=== PATIENT | male | born 1945 | race Caucasian/White ===

== ENCOUNTER → 2017-12-26 14:32 | Outpatient (CLI) | payer MEDICARE, OTHER, SELFPAY ==
--- NOTE | 2017-12-26 14:45 | RAD_ITS ---
STUDY: X-RAY - LUMBAR SPINE REASON FOR EXAM: Male, 72 years old. Low back pain TECHNIQUE: 5 view(s) of the lumbar spine were obtained. COMPARISON: None FINDINGS: Normal lumbar lordosis. There is no substantial scoliosis. There is a normal alignment of the vertebrae. There is multilevel endplate spondylosis of the lumbar vertebrae. There is multi-level degenerative disc disease with multi-level disc space narrowing. The soft tissue structures are unremarkable. RAD/L/S Spine Min 4 Views IMPRESSION: Degenerative changes of the spine, as detailed above. Electronically Signed: Tomas Flower DO at 15:36 EDT Tel , Service support ,
== END ==
PROVIDERS: Visit Provider Anesthesiology Pain Medicine
DX: M54.5 Low back pain (principal); Z85.51 Personal history of malignant neoplasm of bladder
CPT/HCPCS: 72110

== ENCOUNTER → 2018-01-16 15:44 | Outpatient (CLI) | payer MEDICARE, OTHER, SELFPAY | PROVIDERS: Visit Provider Radiology Radiation Oncology | DX: C67.9 Malignant neoplasm of bladder, unspecified (principal) | CPT/HCPCS: 51600; 72193; Q9967 ==

== ENCOUNTER 2018-02-02 09:44 | Inpatient (IN) | payer MEDICARE, OTHER, SELFPAY ==
[2018-02-02 09:45] VITALS: BP 119/66; PULSE 96; RESP 16; TEMP 36.7; O2SAT 98; BMI 18.4
--- NOTE | 2018-02-02 09:59 | ED.VIS.GEN ---
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 He gets intermittent severe lower abdominal pain when he gets a spasm-like discomfort. Otherwise he feels okay, and is unable to urinate anything except for very small amounts at a time. Feels like something is blocking the plumbing. No fevers or back pain or nausea/vomiting. Takes a baby ASA daily, but no other antiplatelets or anticoagulants. - Past Medical History (1) Bladder cancer metastasized to bone Status: Chronic (2) Anxiety Status: Chronic Past Medical History - Allergies and Home Meds Allergies/Adverse Reactions: Allergies sulfamethoxazole [From Bactrim] Adverse Reaction (Verified 02/02/18 11:45) Vomiting trimethoprim [From Bactrim] Adverse Reaction (Verified 02/02/18 11:45) Vomiting Primary Care Physician: Adia Martinez MD [Primary Care Provider] - Review of Systems All systems negative except as indicated General: Reports: Malaise Gastrointestinal: Reports: Abdominal pain Genitourinary: Reports: Hematuria, - - urinary retention Musculoskeletal: Denies: Back pain Physical Exam Vital Signs/Narrative: Vital Signs Temp Pulse Resp BP Pulse Ox 02/02/18 09:45 98.1 F 96 16 119/66 98 Inital Vital Signs reviewed: Yes General: Well nourished, Well developed, - - NAD Head: Normocephalic, Atraumatic Eyes: Perrl, EOMI ENT: Moist mucous membranes, No rhinorrhea Neck: Supple, Nontender Cardiovascular: Regular rate, Regular rhythm, No murmurs Respiratory: No distress, CTA bilaterally, Chest nontender Abdomen: Soft, Nondistended, Normal bowel sounds, Tender - suprapubic. Negative for: Guarding, Rebound tenderness Back: Nontender, Normal Inspection. Negative for: CVA tenderness Extremities: Nontender, No edema Skin: Normal color, No rash Neurological: Alert, Oriented x3, Cranial nerves II-XII grossly intact, Normal Strength, Normal Sensation Psychological: Normal affect Diagnostic/Tx/Re-eval Laboratory Tests 02/02/18 02/02/18 10:25 10:25 WBC 6.8 RBC 3.46 L Hgb 11.5 L Hct 33.9 L MCV 98.0 H MCH 33.2 H MCHC 33.9 RDW 13.9 RDW Differential 49.0 H Plt Count 188 MPV 8.4 Immature Gran % (Auto) 0.100 Neut % (Auto) 81.7 H Lymph % (Auto) 5.5 L Barnes % (Auto) 11.5 H Eos % (Auto) 1.2 Baso % (Auto) 0.0 Absolute Neuts (auto) 5.5 Absolute Lymphs (auto) 0.37 L Total Counted Not Reportable Differential Comment SCANNED Sodium 136 Potassium 4.7 Chloride 102 Carbon Dioxide 25.0 Anion Gap 9 BUN 19 H Creatinine 0.96 Estim Creat Clear Calc 53.43 Est GFR (MDRD) Af Amer 99 Est GFR (MDRD) Non-Af 82 BUN/Creatinine Ratio 19.7 Glucose 122 H Calcium 8.7 - Medical Decision Making Patient had 700 cc of bloody urine with clots out immediately after triple lumen 24F Funk placement, feels improved. He was irrigated with 2 L of saline, and afterwards he has gross hematuria that is persistent. His blood counts look okay, he is admitted after discussing with neurology and his oncologist. ED Disposition - Plan for ED Patient: [facility] Chief Complaint: Complaint Diagnosis: Hematuria, Acute urinary retention, Bladder cancer metastasized to bone Referrals: Adia Martinez MD [Primary Care Provider] -
[2018-02-02 10:38] LABS: Absolute Lymphocyte Count 0.37 X10^3/ul (0.83-4.51); Absolute Neutrophil Count 5.5 X10^3/uL (2.0-7.7); Eosinophil# 0.08 X10^3/uL; Eosinophils% 1.2 % (0-5); Hematocrit 33.9 % (40-54); Hemoglobin 11.5 g/dl (13.0-16.5); Lymphocyte # 0.37 X10^3/ul (4.0); Lymphocyte % 5.5 % (19-41); Mean Corp Hgb Conc 33.9 g/gl (32-36); Mean Corpuscular Hgb 33.2 pg (27.0-32.0); Mean Platelet Vol. 8.4 fl (6.2-12.0); Monocyte# 0.78 X10^3/uL; Monocyte% 11.5 % (0-10); Neutrophil # 5.52 X10^3/uL (2.7-7.7); Neutrophil % 81.7 % (47-70); Platelet Count 188 K/mm3 (150-450); RBC Distribution Width CV 13.9 % (11.6-14.6); Red Blood Count 3.46 M/mm3 (4.6-6.2); White Blood Count 6.8 K/mm3 (4.4-11.0)
[2018-02-02 10:40] LABS: Differential Indicated SCAN CRITERIA MET; POSITIVE COUNT NO; POSITIVE DIFFERENTIAL YES; POSITIVE MORPHOLOGY NO
[2018-02-02 10:54] LABS: Anion Gap 9 (5-15); BUN 19 mg/dL (7-18); BUN/Creat Ratio 19.7 RATIO (10-20); Calcium,Total 8.7 mg/dL (8.5-10.1); Chloride 102 mmol/L (98-107); Creatinine, Serum 0.96 mg/dL (0.70-1.30); EST Glomerular Filtration Rate 82 mL/min (>60); Est Glom Filt Rate - Afr Amer 99 mL/min (>60); Estimated Creatinine Clearance 53.43 ml/min; Glucose 122 mg/dL (74-106); Potassium 4.7 mmol/L (3.5-5.1); Sodium Level 136 mmol/L (136-145)
[2018-02-02] MEDS: Lidocaine Jelly 2% 20 ML Syringe (URO-JET) 20 APPLIC TOPICAL (11:00)
[2018-02-02 11:08] LABS: Differential Comment SCANNED
[2018-02-02 12:42] VITALS: BP 126/58; PULSE 87; RESP 16; O2SAT 97
[2018-02-02 12:44] VITALS: BP 126/58; PULSE 87; RESP 18; O2SAT 97
[2018-02-02 14:39] VITALS: BMI 18.5
[2018-02-02 15:09] VITALS: BMI 18.7
--- NOTE | 2018-02-02 15:11 | PCM.HP.STD ---
Problem List (1) Bladder cancer metastasized to bone Status: Chronic (2) Anxiety Status: Chronic (3) Hematuria Status: Acute (4) Acute urinary retention Status: Acute History of Present Illness Date of Admission: 02/02/18 Chief Complaint: Hematuria and abdominal pain The patient is a 72 year old M with a PMH significant for stage 4 bladder cancer with mets to the pelvis. He was diagnosed 5 years ago and had several surgeries to biopsy and remove the cancer. About 2 years ago he was offered a bladder resection which he refused. He has started chemo/radiation and is on his 8th of 25 treatments, however he did not do his last chemo becuase of not feeling well and having significant nausea. He presented today because of increased abdominal pain and hematuria. He did not have hematuria prior to starting treatments. In the ER he had a three way osorio placed and CBI was initiated with a consultation to Urology. He is a little demoralized with they way things have gone and he is complaining about significant pain and muscle spasms that no one is taking seriously. He states that the norco he was given does not often help his pain and he had been on xanax and flexeril, however he was told, apparently, the [facility] that he could not continue that combination d/t risk of sedation. Past Medical History Past Medical History (Chronic Problems): Chronic Problems Bladder cancer metastasized to bone (Chronic) Anxiety (Chronic) Allergies sulfamethoxazole [From Bactrim] Adverse Reaction (Verified 02/02/18 11:45) Vomiting trimethoprim [From Bactrim] Adverse Reaction (Verified 02/02/18 11:45) Vomiting Home Medications: Ambulatory Orders Medication Instructions Recorded ALPRAZolam [Xanax] 1 mg PO QHS 02/02/18 Gabapentin [Neurontin] 300 mg PO Q6H 02/02/18 Hydrocodone/Acetaminophen 1 tab PO Q6H PRN PRN 02/02/18 [Hydrocodone-Acetamin 5-325 mg] Tamsulosin HCl [Flomax] 0.4 mg PO QHS 02/02/18 Surgical History: - - Bladder biopsy, Tumor resection Lives: Spouse/ Significant Other Smoking Status: Current some day smoker Tobacco Use: Cigarettes Alcohol: None Drugs: None - *Family History Paternal History Items: Cancer, Hypertension Review of Systems Constitutional: Denies: Chills, Fever, Weight Change HEENT: Denies: Head Aches, Sinus Congestion, Sinus Drainage Cardiovascular: Denies: Chest Pain, Palpitations Respiratory: Denies: Cough, Shortness of breath at rest, Sputum production Gastrointestinal: Reports: Abdominal Pain. Denies: Nausea, Vomiting Genitourinary: Reports: Hematuria, Retention. Denies: Dysuria Musculoskeletal: Denies: Joint Pain, Joint Tenderness Skin: Denies: Rash, Wounds Neurological: Denies: Numbness, Tingling, Focal weakness Psychiatric: Denies: Anxiety, Depression, Homicidal Ideations, Suicidal Ideations Hematologic/ Lymphatic: Denies: Easy Bruising, Easy Bleeding VTE Information - Inpt Only VTE Present on Admission: No Patient Problems: Active and Suspected Problems Hematuria (Acute) Acute urinary retention (Acute) - Physical Exam General: Alert, Oriented x3, Cooperative, No apparent distress HEENT: Atraumatic, EOMI, Normocephalic Oral: Moist Mucosa Neck: Supple, No JVD Lungs: Clear to auscultation, Normal air movement, No rhonchi, No wheeze, No rales Cardiovascular: Regular rate, Regular Rhythm, Normal S1, Normal S2, No murmurs Abdomen: Soft, Non Tender, Non-Distended, No Hepato-splenomegaly Extremities: No edema, Capillary Refill Less than 3 Seconds Skin: No rashes, No breakdown Neurological: Neuro grossly intact, Sensory exam intact to light touch and pain Psych/Mental Status: Normal Affect, Appropriate Vital Signs Temp Pulse Resp BP Pulse Ox 98.1 F 87 18 126/58 H 97 02/02/18 09:45 02/02/18 12:44 02/02/18 12:44 02/02/18 12:44 02/02/18 12:44 Weight: 119 lb 11.376 oz Body Mass Index (BMI) 18.7 Assessment/Plan All Active Problems Hematuria (Acute) Acute urinary retention (Acute) 1. Stage 4 bladder cancer/Acute urinary retention/Hematuria/Cancer related bone pain - He has a osorio in place with CBI - C/s to Urology for management - I will increase his pain control with Oxycontin 10 mg BID Po and oxycodone 5 mg q6 PRN - He also has occasional back spasms and anxiety, so will try Valium 2 mg BID prn, will have to monitor closely for sedation while inpatient - c/w his gabapentin as well - Flomax - I spent 25 discussing advance care planning with him and his about the role of hospice in his care and what they can offer if he chooses that route 2. Anxiety - He would benefit from the Valium but he may also benefit from an SSRI/SNRI given his diagnosis DVT: SCD b/o hematuria Diet: Regular Code Visit Inpatient E&M: 22676 Init Hosp L3 Procedures: 70779 Advncd Care Plan 30 Min
[2018-02-02 15:12] VITALS: BP 127/73; PULSE 87; RESP 18; TEMP 37.6; O2SAT 96
[2018-02-02 15:30] VITALS: O2SAT 95
--- NOTE | 2018-02-02 17:49 | PCM.CONS.U ---
Reason for Consult Date of Consultation: 02/02/18 Reason for Consultation: Gross hematuria and history of metastatic bladder cancer History of Present Illness: The patient is a 72 year old male with a history of bladder cancer he is developed metastatic disease with cancer to the bones. He is undergoing radiation therapy to his bladder also as finished chemotherapy. Resents emergency room with gross hematuria bleeding and retention of urine with clots three-way catheter has been placed urines now clearing with nice irrigation. Past Medical History Past Medical History (Chronic Problems): Chronic Problems Bladder cancer metastasized to bone (Chronic) Anxiety (Chronic) Allergies sulfamethoxazole [From Bactrim] Adverse Reaction (Verified 02/02/18 11:45) Vomiting trimethoprim [From Bactrim] Adverse Reaction (Verified 02/02/18 11:45) Vomiting Home Medications: Ambulatory Orders Medication Instructions Recorded ALPRAZolam [Xanax] 1 mg PO QHS 02/02/18 Gabapentin [Neurontin] 300 mg PO Q6H 02/02/18 Hydrocodone/Acetaminophen 1 tab PO Q6H PRN PRN 02/02/18 [Hydrocodone-Acetamin 5-325 mg] Tamsulosin HCl [Flomax] 0.4 mg PO QHS 02/02/18 Surgical History: - - Bladder biopsy, Tumor resection Psychiatric History: No pertinent psych hx Lives: Spouse/ Significant Other Smoking Status: Current some day smoker Tobacco Use: Cigarettes Alcohol: None Drugs: None - *Family History Paternal History Items: Cancer, Hypertension Review of Systems Constitutional: Denies: Chills, Fever, Weight Change HEENT: Denies: Head Aches, Sinus Congestion, Sinus Drainage Cardiovascular: Denies: Chest Pain, Palpitations Respiratory: Denies: Cough, Shortness of breath at rest, Sputum production Gastrointestinal: Denies: Abdominal Pain, Nausea, Vomiting Genitourinary: Reports: Hematuria. Denies: Dysuria Musculoskeletal: Denies: Joint Pain, Joint Tenderness Skin: Denies: Rash, Wounds Neurological: Denies: Numbness, Tingling, Focal weakness Psychiatric: Denies: Anxiety, Depression, Homicidal Ideations, Suicidal Ideations Hematologic/ Lymphatic: Denies: Easy Bruising, Easy Bleeding Physical Exam - Physical Exam Vital Signs Temp 99.7 F H 02/02/18 15:12 Pulse 87 02/02/18 15:12 Resp 18 02/02/18 15:12 BP 127/73 H 02/02/18 15:12 Pulse Ox 95 02/02/18 15:30 Intake & Output 01/31/18 02/01/18 02/02/18 23:59 23:59 23:59 Weight: 54.3 kg General: Alert, Oriented x3 HEENT: Atraumatic Oral: Moist Mucosa Neck: Supple Lungs: Normal air movement Cardiovascular: Regular rate Assessment/Plan All Active Problems Hematuria (Acute) Acute urinary retention (Acute) 72-year-old male with history of metastatic bladder cancer presented with gross hematuria catheter was placed urine is nice and clear continue with CBI I do not anticipate having to do any surgical procedures on the patient currently if the urine clears on its own and he may be oh to go home. May remove the catheter in a day or 2 for a voiding trial. Continue CBI for now slow as needed. Will come back tomorrow afternoon and irrigate the bladder manually to check for more clots. Call me with questions.
--- NOTE | 2018-02-02 18:55 | NURSING ---
This RN in to give 1800 meds-informed patient that he was going to be getting his neurontin and an ensure supplement. Patient's states that he already took his own neurontin from home, he also had 2 motrin and 1 norco at about 5:30pm. This RN informed patient and his that while he is in the hospital the nurses will provide medications for him and that the medications they have in their room need to go home. Patient and family verbalized understanding.
[2018-02-02 21:15] VITALS: BP 131/66; PULSE 88; RESP 16; TEMP 36.9; O2SAT 97
[2018-02-02] MEDS: diazePAM 2 MG Tablet PO (21:30)
[2018-02-02] MEDS: Tamsulosin HCl 0.4 MG Capsule PO (21:31)
[2018-02-02] MEDS: oxyCODONE HCl Cr 10 MG Tablet PO (21:31)
[2018-02-02] MEDS: Docusate Sodium 100 MG Capsule PO (21:32)
[2018-02-02] MEDS: Gabapentin 300 MG Capsule PO (21:33)
[2018-02-03] VITALS (7 sets, daily range): BP systolic 130–142; BP diastolic 50–82; PULSE 90–103; RESP 15–18; TEMP 37.1–37.7; O2SAT 90–97
[2018-02-03] MEDS: oxyCODONE 5 MG Tablet PO ×3 (02:46→14:35)
[2018-02-03] MEDS: ALPRAZolam 0.5 MG Tablet 1 MG PO ×2 (04:30→23:04)
[2018-02-03 06:21] LABS: Anion Gap 9 (5-15); BUN 18 mg/dL (7-18); BUN/Creat Ratio 18.2 RATIO (10-20); Calcium,Total 8.4 mg/dL (8.5-10.1); Chloride 104 mmol/L (98-107); Creatinine, Serum 0.99 mg/dL (0.70-1.30); EST Glomerular Filtration Rate 79 mL/min (>60); Est Glom Filt Rate - Afr Amer 96 mL/min (>60); Estimated Creatinine Clearance 52.56 ml/min; Glucose 95 mg/dL (74-106); Potassium 4.5 mmol/L (3.5-5.1); Sodium Level 139 mmol/L (136-145)
[2018-02-03 06:37] LABS: Absolute Lymphocyte Count 0.57 X10^3/ul (0.83-4.51); Absolute Neutrophil Count 5.7 X10^3/uL (2.0-7.7); Basophil# 0.01 X10^3/uL; Basophil% 0.1 % (0-1); Differential Indicated SCAN CRITERIA MET; Eosinophil# 0.11 X10^3/uL; Eosinophils% 1.5 % (0-5); Hematocrit 32.8 % (40-54); Hemoglobin 11.1 g/dl (13.0-16.5); Lymphocyte # 0.57 X10^3/ul (4.0); Mean Corp Hgb Conc 33.8 g/gl (32-36); Mean Corpuscular Hgb 33.4 pg (27.0-32.0); Mean Corpuscular Volume 98.8 fL (80-94); Mean Platelet Vol. 8.6 fl (6.2-12.0); Monocyte# 0.75 X10^3/uL; Monocyte% 10.6 % (0-10); Neutrophil # 5.65 X10^3/uL (2.7-7.7); Neutrophil % 79.7 % (47-70); POSITIVE COUNT NO; POSITIVE DIFFERENTIAL YES; POSITIVE MORPHOLOGY NO; Platelet Count 216 K/mm3 (150-450); RBC Distribution Width CV 13.5 % (11.6-14.6); RBC Distribution Width SD 46.1 fl (35.1-43.9); Red Blood Count 3.32 M/mm3 (4.6-6.2); White Blood Count 7.1 K/mm3 (4.4-11.0)
[2018-02-03] MEDS: Gabapentin 300 MG Capsule PO ×4 (08:16→23:04)
[2018-02-03] MEDS: Docusate Sodium 100 MG Capsule PO ×2 (08:16→21:23)
--- NOTE | 2018-02-03 09:06 | PCM.PROGNOTE ---
Patient Problems: Active and Suspected Problems Hematuria (Acute) Acute urinary retention (Acute) Subjective: Chief complaint: Follow-up after admission for hematuria. Patient seen and examined. No acute events overnight. He complains of low back pain which is due to metastatic bone lesions. Urine but still having hematuria, pink urine. He denies fever or chills. His vital signs are stable. - Physical Exam General: Alert, Oriented x3, Cooperative, No apparent distress HEENT: Atraumatic, PERRLA, EOMI, Normocephalic Oral: Moist Mucosa, No Gingival or Mucosal Lesions/ Ulcerations Neck: Supple, No JVD, Negative Carotid Bruits, Trachea Midline, Thyroid Normal Size and Texture Lungs: Clear to auscultation, Normal air movement, No rhonchi, No wheeze, No rales Cardiovascular: Regular rate, Regular Rhythm, Normal S1, Normal S2, PMI Normal Abdomen: Bowel Sounds Present, Soft, Non Tender, Non-Distended, No Hepato-splenomegaly Extremities: No clubbing, No cyanosis, No edema Skin: No rashes, No breakdown Lymphatic: No Cervical, Supraclavicular, or Inguinal Adenopathy Neurological: Cranial nerves II-XII grossly intact, Neuro grossly intact Psych/Mental Status: Normal Affect, Appropriate, Alert and oriented to time, place, person, mood and affect Vital Signs Temp Pulse Resp BP Pulse Ox 98.7 F 100 16 139/55 H 95 02/03/18 08:50 02/03/18 08:50 02/03/18 08:50 02/03/18 08:50 02/03/18 08:50 Oxygen Delivery Method Room Air Weight: 119 lb 11.376 oz Body Mass Index (BMI) 18.7 Intake and Output for Last 24 Hours 02/01/18 02/02/18 02/03/18 23:59 23:59 23:59 Intake Total 200 / 200 550 / 550 Output Total 550 / 550 1960 / 1960 Balance -350 / -350 -1410 / -1410 Laboratory Tests Past 24 Hrs 02/03/18 02/03/18 05:35 05:35 WBC 7.1 RBC 3.32 L Hgb 11.1 L Hct 32.8 L MCV 98.8 H MCH 33.4 H MCHC 33.8 RDW 13.5 RDW Differential 46.1 H Plt Count 216 MPV 8.6 Immature Gran % (Auto) 0.100 Neut % (Auto) 79.7 H Lymph % (Auto) 8.0 L Cataño % (Auto) 10.6 H Eos % (Auto) 1.5 Baso % (Auto) 0.1 Absolute Neuts (auto) 5.7 Absolute Lymphs (auto) 0.57 L Total Counted Not Reportable Sodium 139 Potassium 4.5 Chloride 104 Carbon Dioxide 26.0 Anion Gap 9 BUN 18 Creatinine 0.99 Estim Creat Clear Calc 52.56 Est GFR (MDRD) Af Amer 96 Est GFR (MDRD) Non-Af 79 BUN/Creatinine Ratio 18.2 Glucose 95 Calcium 8.4 L Medical Necessity - Tobacco Use Smoking Status: Current some day smoker Tobacco Use: Cigarettes Assessment/Plan All Active Problems Hematuria (Acute) Acute urinary retention (Acute) This is a 72 years old male patient presented to the emergency room because of urinary retention and hematuria and he was admitted for evaluation. #1 urinary retention/hematuria with clots: Status post insertion of Funk catheter, he is on continuous bladder irrigation. Still having hematuria. Blood counts are stable. Hemoglobin and hematocrit remained stable, platelet count is normal. Kidney function is normal. This hematuria is probably due to radiation therapy to the bladder cancer. Urology on the case. Plan is absolutely according to urology and there is no orders from me to be given as the patient has no significant other medical problems apart from bladder cancer and hematuria. #2 metastatic stage IV bladder cancer: With metastases to bone, currently on chemotherapy and radiation. Patient refused bladder resection in the past. Recommend follow-up with oncology as outpatient after discharge. #3 bone pain: It is secondary to metastatic bladder cancer. He is on OxyIR and Valium. #4 anxiety: Continue Xanax. #5 DVT prophylaxis: SCDs. This note was generated with [employer] dictation software. It may contain incorrect words, spelling, and punctuation that were not noted in checking the note before signing. Code Visit Inpatient E&M: 82874 Subs Hosp L2
[2018-02-03] MEDS: oxyCODONE HCl Cr 10 MG Tablet PO ×2 (10:13→21:14)
[2018-02-03] MEDS: Polyethylene Glycol 3350 17 GM PACKET PO (10:14)
--- NOTE | 2018-02-03 12:01 | CASEMGMT ---
CM assessment completed. See Link. DC Plan: home -Intro role of CM to patient and his . Pt and expressed no concerns re: home needs. Pt is independent, no DME. States is able to assist. Marito MONTELONGON RN ACM
--- NOTE | 2018-02-03 14:47 | PCM.PN.BLA ---
Progress Note 72-year-old male with history of metastatic bladder cancer came in with gross hematuria been treated with radiation and chemotherapy. The urine is clearing. I do not anticipate having to taken to the operating room. Tomorrow we can DC the Funk if the urine is clear and discharge patient home after he is able to urinate. Call with questions
[2018-02-03] MEDS: Tamsulosin HCl 0.4 MG Capsule PO (21:23)
[2018-02-04 03:00] VITALS: PULSE 93; RESP 15; O2SAT 91
[2018-02-04] MEDS: Gabapentin 300 MG Capsule PO ×2 (06:00→12:17)
[2018-02-04 07:40] VITALS: O2SAT 89
[2018-02-04 07:52] LABS: Absolute Lymphocyte Count 0.66 X10^3/ul (0.83-4.51); Absolute Neutrophil Count 6.9 X10^3/uL (2.0-7.7); Basophil# 0.01 X10^3/uL; Basophil% 0.1 % (0-1); Eosinophil# 0.17 X10^3/uL; Hematocrit 34.4 % (40-54); Lymphocyte # 0.66 X10^3/ul (4.0); Lymphocyte % 7.8 % (19-41); Mean Corp Hgb Conc 34.9 g/gl (32-36); Mean Corpuscular Hgb 34.3 pg (27.0-32.0); Mean Corpuscular Volume 98.3 fL (80-94); Mean Platelet Vol. 8.3 fl (6.2-12.0); Monocyte# 0.76 X10^3/uL; Monocyte% 8.9 % (0-10); Neutrophil % 81.1 % (47-70); Platelet Count 202 K/mm3 (150-450); RBC Distribution Width CV 13.5 % (11.6-14.6); RBC Distribution Width SD 46.1 fl (35.1-43.9); White Blood Count 8.5 K/mm3 (4.4-11.0)
[2018-02-04 07:53] LABS: POSITIVE COUNT NO; POSITIVE DIFFERENTIAL NO; POSITIVE MORPHOLOGY NO
[2018-02-04 08:00] VITALS: BP 111/56; PULSE 93; RESP 16; TEMP 37.6; O2SAT 93
--- NOTE | 2018-02-04 08:28 | PN_ITS ---
Patient Problems: Active and Suspected Problems Hematuria (Acute) Acute urinary retention (Acute) Subjective: Chief complaint: Follow-up after admission for hematuria. Patient seen and examined. No acute events overnight. Urine is still pink, hematuria but it is clearing up. His back pain is getting better. His vital signs are stable. - Physical Exam General: Alert, Oriented x3, Cooperative, No apparent distress HEENT: Atraumatic, PERRLA, EOMI, Normocephalic Oral: Moist Mucosa, No Gingival or Mucosal Lesions/ Ulcerations Neck: Supple, No JVD, Negative Carotid Bruits, Trachea Midline, Thyroid Normal Size and Texture Lungs: Clear to auscultation, Normal air movement, No rhonchi, No wheeze, No rales Cardiovascular: Regular rate, Regular Rhythm, Normal S1, Normal S2, PMI Normal Abdomen: Bowel Sounds Present, Soft, Non Tender, Non-Distended, No Hepato- splenomegaly Extremities: No clubbing, No cyanosis, No edema Skin: No rashes, No breakdown Lymphatic: No Cervical, Supraclavicular, or Inguinal Adenopathy Neurological: Cranial nerves II-XII grossly intact, Neuro grossly intact Psych/Mental Status: Normal Affect, Appropriate, Alert and oriented to time, place, person, mood and affect Vital Signs Temp Pulse Resp BP Pulse Ox 99.3 F H 93 15 130/50 H 91 02/03/18 23:19 02/04/18 03:00 02/04/18 03:00 02/03/18 23:19 02/04/18 03:00 Oxygen Delivery Method Room Air Weight: 119 lb 11.376 oz Body Mass Index (BMI) 18.7 Intake and Output for Last 24 Hours 02/02/18 02/03/18 02/04/18 23:59 23:59 23:59 Intake Total 200 / 200 1870 / 1870 450 / 450 Output Total 550 / 550 2985 / 2985 4900 / 4900 Balance -350 / -350 -1115 / -1115 -4450 / -4450 Laboratory Tests Past 24 Hrs 02/04/18 07:40 WBC 8.5 RBC 3.50 L Hgb 12.0 L Hct 34.4 L MCV 98.3 H MCH 34.3 H MCHC 34.9 RDW 13.5 RDW Differential 46.1 H Plt Count 202 MPV 8.3 Immature Gran % (Auto) 0.100 Neut % (Auto) 81.1 H Lymph % (Auto) 7.8 L Lewis % (Auto) 8.9 Eos % (Auto) 2.0 Baso % (Auto) 0.1 Absolute Neuts (auto) 6.9 Absolute Lymphs (auto) 0.66 L Total Counted Not Reportable Medical Necessity - Tobacco Use Smoking Status: Current some day smoker Tobacco Use: Cigarettes Assessment/Plan All Active Problems Hematuria (Acute) Acute urinary retention (Acute) This is a 72 years old male patient presented to the emergency room because of urinary retention and hematuria and he was admitted for evaluation. #1 urinary retention/hematuria with clots: Status post insertion of Funk catheter, remained on continuous bladder irrigation. Still having hematuria although urine is clearing up. CBC from today revealed stable hemoglobin and hematocrit as well as platelet count. Kidney function is normal. This hematuria is probably due to radiation therapy to the bladder cancer. Urology on the case. Plan according to urology. #2 metastatic stage IV bladder cancer: With metastases to bone, currently on chemotherapy and radiation. Patient refused bladder resection in the past. Recommend follow-up with oncology as outpatient after discharge. #3 bone pain: It is secondary to metastatic bladder cancer. He is on MS Contin twice daily, OxyIR and Valium as needed. #4 anxiety: Continue Xanax. #5 DVT prophylaxis: SCDs. This note was generated with [employer] software. It may contain incorrect words, spelling, and punctuation that were not noted in checking the note before signing. Code Visit Inpatient E&M: 81912 Subs Hosp L2
[2018-02-04] MEDS: Docusate Sodium 100 MG Capsule PO (10:11)
[2018-02-04] MEDS: oxyCODONE HCl Cr 10 MG Tablet PO (10:12)
[2018-02-04] MEDS: Polyethylene Glycol 3350 17 GM PACKET PO (10:12)
[2018-02-04 14:05] VITALS: BP 129/60; PULSE 96; RESP 16; TEMP 36.8; O2SAT 95
--- NOTE | 2018-02-04 16:00 | PCM.DC ---
- Discharge Diagnoses Current Active Problems: Current Active and Chronic Problems Bladder cancer metastasized to bone (Chronic) Hematuria (Acute) Acute urinary retention (Acute) You will use the following diet at home:: Regular Your food should be the consistency of: Regular Discharge Activity: Return to Normal Activity, May not drive while taking narcotic pain medications. Weight Bearing Status: Weight bearing as tolerated Call your doctor if you observe: Fever of 101 or Higher, Shortness of breath, Dizziness, Fainting spells, Chest pain, Increased palpitations (irregular heartbeat), Uncontrolled pain Allergies/Adverse Reactions: Allergies sulfamethoxazole [From Bactrim] Adverse Reaction (Verified 02/02/18 11:45) Vomiting trimethoprim [From Bactrim] Adverse Reaction (Verified 02/02/18 11:45) Vomiting Medications to take at Discharge ALPRAZolam [Xanax] 1 mg PO QHS 02/02/18 Gabapentin [Neurontin] 300 mg PO Q6H 02/02/18 Tamsulosin HCl [Flomax] 0.4 mg PO QHS 02/02/18 Docusate Sodium [Colace] 100 mg PO BID #30 cap 02/04/18 Oxycodone CR [Oxycontin] 10 mg PO BID 15 Days #30 tab 02/04/18 Oxycodone [Oxyir] 5 mg PO Q8H PRN PRN 6 Days #20 tab 02/04/18 Polyethylene Glycol 3350 [Miralax] 17 gm PO DAILY #30 packet 02/04/18 The following prescriptions were given: Oxycodone [Oxyir] 5 mg PO Q8H PRN PRN 6 Days #20 tab PRN Reason: Severe Pain (-03/15) Polyethylene Glycol 3350 [Miralax] 17 gm PO DAILY #30 packet Docusate Sodium [Colace] 100 mg PO BID #30 cap Oxycodone CR [Oxycontin] 10 mg PO BID 15 Days #30 tab Primary Care Physician: Adia Martinez MD [Primary Care Provider] - Please follow up with your Primary Care Physician in: 1 week. Test Results: Test results from this visit will be discussed in further detail at your follow-up appointment, if applicable. Please Follow Up With: Juan R Baca MD When: within 1 week. please call his office.
[2018-02-04 18:10] VITALS: BP 118/74; PULSE 108; RESP 18; TEMP 37.1; O2SAT 93
--- NOTE | 2018-02-05 11:18 | PCM.DC.SUM ---
Discharge Date and Diagnosis Date of Admission: 02/02/18 Date of Discharge: 02/04/18 - Primary Discharge Diagnosis #1 hematuria/urinary retention. #2 intractable low back pain/bone pain. #3 metastatic stage IV bladder cancer. - Secondary Discharge Diagnosis Chronic Problems Bladder cancer metastasized to bone (Chronic) Anxiety (Chronic) Hospital Course and Treatment Dr. Baca, urology. Procedures: None Summary of Care Provided: The patient is a 72 year old M admitted because of urinary retention and hematuria in context of history of metastatic stage IV bladder cancer with metastasis to bone currently on chemotherapy and radiation. Patient admitted because of hematuria or blood clots. Funk catheter was inserted and patient remained on continuous bladder irrigation for 2 days. Is clear and started to clear up very slowly. Urology consulted and recommended to continue CBI without any other interventions. Patient's routine blood work including hemoglobin and hematocrit were stable. His hemoglobin on admission was 11.5 g/dL and upon discharge, it was 12 g/dL. His platelet count was normal. BNP was normal. His vital signs been stable throughout admission and he remained afebrile. With continuous bladder irrigation, his urine started to clear up. Urology recommended to take off the Funk catheter and do a voiding trial. On the day of discharge, voiding trial done and patient was able to urinate on his own. Patient complains of low back pain which is attributed to his metastatic bladder cancer. He was started on MS Contin twice daily as well as OxyIR as needed for pain. With pain management, patient's bone pain improved and was tolerable. According to your recommendations, patient was discharged home. He was discharged home in a stable medical condition, discharged on Flomax, discharged on MS Contin twice daily and OxyIR as needed for bone pain due to metastatic bladder cancer, discharged on Xanax for anxiety, recommended follow-up with PCP in 1 week, follow-up with urology within 1 week as well. Discharge Activity: Return to Normal Activity, May not drive while taking narcotic pain medications. Weight Bearing Status: Weight bearing as tolerated Call your doctor if you observe: Fever of 101 or Higher, Shortness of breath, Dizziness, Fainting spells, Chest pain, Increased palpitations (irregular heartbeat), Uncontrolled pain Home Medications: Medications to take at Discharge ALPRAZolam [Xanax] 1 mg PO QHS 02/02/18 Gabapentin [Neurontin] 300 mg PO Q6H 02/02/18 Tamsulosin HCl [Flomax] 0.4 mg PO QHS 02/02/18 Docusate Sodium [Colace] 100 mg PO BID #30 cap 02/04/18 Oxycodone CR [Oxycontin] 10 mg PO BID 15 Days #30 tab 02/04/18 Oxycodone [Oxyir] 5 mg PO Q8H PRN PRN 6 Days #20 tab 02/04/18 Polyethylene Glycol 3350 [Miralax] 17 gm PO DAILY #30 packet 02/04/18 Following Prescrptions Were Given to Patient: Oxycodone [Oxyir] 5 mg PO Q8H PRN PRN 6 Days #20 tab PRN Reason: Severe Pain (-03/15) Polyethylene Glycol 3350 [Miralax] 17 gm PO DAILY #30 packet Docusate Sodium [Colace] 100 mg PO BID #30 cap Oxycodone CR [Oxycontin] 10 mg PO BID 15 Days #30 tab Primary Care Physician: Adia Martinez MD [Primary Care Provider] - Please follow up with your Primary Care Physician in: 1 week. Please Follow Up With: Juan R Baca MD When: within 1 week. please call his office. Disposition: Home Minutes spent on discharge:: 32 Patient Condition:: Stable Medical Necessity - Tobacco Use Smoking Status: Current some day smoker Tobacco Use: Cigarettes Meaningful Use Info Meaningful Use Diagnoses (Choose all that apply): None applicable Code Visit Inpatient E&M: 07519 Disch Hosp
== END 2018-02-04 18:21 | disposition home or self-care (01) | DRG 687 ==
LOC: ED 12:59 → MS2 14:34 → MS3 02-03 16:13
PROVIDERS: Admitting Provider Family Medicine; Emergency Provider Emergency Medicine; Visit Provider Hospitalist
DX: C67.9 Malignant neoplasm of bladder, unspecified (principal); C79.51 Secondary malignant neoplasm of bone; R33.9 Retention of urine, unspecified; R31.0 Gross hematuria; F17.210 Nicotine dependence, cigarettes, uncomplicated; F41.9 Anxiety disorder, unspecified; M54.5 Low back pain; G89.3 Neoplasm related pain (acute) (chronic); Z92.3 Personal history of irradiation
CPT/HCPCS: 36415; 51702; 80048; 85025; 97802; 99283; 99406; J7040; A4216

== ENCOUNTER → 2018-02-23 12:25 | Outpatient (CLI) | payer MEDICARE, OTHER, SELFPAY ==
--- NOTE | 2018-02-23 12:29 | CT_ITS ---
STUDY: CT PELVIS WITH CONTRAST REASON FOR EXAM: Male, 72 years old. Bladder cancer after radiation therapy. RADIATION DOSAGE (If Supplied By Facility): CTDIvol = ( 22.99 ) mGy, DLP = ( 638.95 ) mGycm TECHNIQUE: Transaxial imaging of the pelvis was performed with oral contrast. 100 ml of Isovue 300 contrast was administered intravenously. Axial images only. Individualized dose optimization techniques were used for this CT. COMPARISON: 01/16/2018. FINDINGS: Body wall soft tissues: There is a small stable pocket of fluid just above the umbilicus in the subcutaneous fat, measuring about 3 cm. Osseous structures: Expansile lytic lesion of the right inferior pubic ramus, measures up to 5.4 cm along the long axis of the ramus, and up to 3 cm transverse. The transverse dimension of this process is somewhat smaller than seen on prior CT imaging of 01/16/2018. This may be attributable to differences in technique. No other osseous lesions are identified. Large bowel: Somewhat prominent stool burden may reflect constipation. There is circumferential thickening of the wall the ascending colon, transverse colon and descending colon, with mild inflammatory induration in the adjacent fat suggesting the presence of diffuse mild colitis. There is diffuse diverticulosis of the sigmoid colon with diffuse wall thickening, no definitive induration in the adjacent fat, but in the mid sigmoid there is a small focus of low density measuring 1 cm in the wall adjacent to diverticuli which may be a small phlegmon. Acute diverticular inflammation in this segment is suspected. The rectum is normal. Prostate: The prostate is enlarged, stable. Moderate enlargement of the seminal vesicles is also stable. Urinary bladder: The mass of the left posterior lateral urinary bladder wall has substantially diminished in size compared to recent prior imaging. It now measures approximately 3 cm anterior-posterior, and 6 mm in thickness. On the prior study it measured approximately 4 cm is anterior-posterior, and up to 2.2 cm in thickness. Consistent with response to therapy. The mass involves the left ureterovesical junction and there is persistent prominent left hydroureter, with a maximum diameter of approximately 10 mm. The right distal ureter is normal. Small bowel: Evaluated portions exhibit no acute process. There are small scattered lymph nodes in the small bowel mesentery, none pathologically enlarged. Retroperitoneum: No mass or lymphadenopathy. Vasculature: Moderate atherosclerosis. Free fluid or free air: None. CT/CT Pelvis W/CONT Therapy IMPRESSION: Lytic expansile lesion of the right inferior pubic ramus, probably not significantly changed since imaging of 01/16/2018. Diminished size of the left posterior lateral bladder wall mass in response to therapy. Persistent involvement of the left ureterovesical junction with persistent left hydroureter. There is mild circumferential thickening of the majority of the large bowel wall suggesting the presence of acute mild colitis. In addition, there is diffuse diverticulosis with prominent wall thickening of the sigmoid colon, with a small focus in the wall which may represent a small phlegmon. Acute diverticular inflammation in the sigmoid is suspected. Electronically Signed: Viktor Awad, at 13:41 EDT Tel , Service support ,
== END ==
PROVIDERS: Visit Provider Radiology Radiation Oncology
DX: C67.9 Malignant neoplasm of bladder, unspecified (principal)
CPT/HCPCS: 51600; 72193; Q9967

== ENCOUNTER 2018-03-09 10:40 | Emergency (ER) | payer MEDICARE, OTHER, SELFPAY ==
[2018-03-09 10:41] VITALS: BP 149/72; PULSE 97; RESP 16; TEMP 37.3; O2SAT 98; BMI 18.4
--- NOTE | 2018-03-09 10:57 | CT_ITS ---
STUDY: CT ABDOMEN AND PELVIS WITHOUT CONTRAST REASON FOR EXAM: Male, 72 years old. Abdominal pain x1 week. RADIATION DOSAGE (If Supplied By Facility): CTDIvol = ( 8.17 ) mGy, DLP = ( 351.64 ) mGycm TECHNIQUE: Transaxial images were obtained from the dome of the diaphragm to the symphysis pubis without oral contrast, and without intravenous contrast. Sagittal and coronal images were reconstructed. Individualized dose optimization techniques were used for this CT. COMPARISON: CT pelvis dated 02/23/2018 FINDINGS: Density calcified granuloma in the left lower lobe. Otherwise, lung bases are clear. The visualized portions of the heart are within normal limits. Normal liver. Gallbladder appears to be full of stones without definitive evidence of gallbladder wall thickening or pericholecystic fluid. Normal spleen. Normal pancreas. Normal bilateral adrenal glands. There appears to be severe left-sided hydronephrosis with left hydroureter. No discrete stone noted within the left ureter however, there is circumferential wall thickening of the bladder with some calcifications in the bladder wall. Moderate right hydronephrosis. Vascular calcifications noted in both kidneys. Mild to moderate atrophy of the left renal parenchyma. Normal visualized stomach. Numerous loops of small bowel demonstrating fluid-filled appearance with mild distention. No abnormal dilation however. Colon is poorly visualized due to the lack of oral contrast however, colonic diverticulosis is noted without definite diverticulitis. Unremarkable appendix. Moderate to severe abdominal aortic calcifications are noted. There is a thin intraluminal calcification, best seen on image 51, series 1002. Normal inferior vena cava. Normal retroperitoneum. Circumferential bladder wall thickening with calcifications. Suggesting cystitis. Enlarged prostate. There is a soft tissue density in the subcutaneous tissues in the region of the umbilicus measuring 3.1 x 1.4 cm. There are diffuse degenerative changes of the visualized lumbar spine. CT/Abdomen/Pelvis without Cont IMPRESSION: 1. Severe left hydronephrosis with moderate left parenchymal volume loss. Moderate right hydronephrosis. Severe left hydroureter. Circumferential wall thickening of the bladder suggesting cystitis with wall calcifications. Bladder findings appear stable as compared to recent CT pelvis. Enlarged prostate 2. Numerous gallstones without evidence of acute cholecystitis 3. Stable ovoid mass in the subcutaneous tissues of the umbilicus Electronically Signed: Tomas Flower DO at 12:07 EDT Tel , Service support ,
[2018-03-09] MEDS: Metoclopramide 10 MG/2 ML Vial IV (11:21)
[2018-03-09] MEDS: HYDROmorphone 1 MG/ML Syringe 0.5 MG IV (11:21)
[2018-03-09] MEDS: 0.9% Normal Saline 1,000 ML 1000 ML IV (11:25)
[2018-03-09 11:27] VITALS: BP 150/77; PULSE 93; O2SAT 98
[2018-03-09 11:27] LABS: Absolute Neutrophil Count 3.7 X10^3/uL (2.0-7.7); Eosinophil# 0.01 X10^3/uL; Eosinophils% 0.2 % (0-5); Hemoglobin 11.6 g/dl (13.0-16.5); Lymphocyte % 9.5 % (19-41); Mean Corp Hgb Conc 34.1 g/gl (32-36); Mean Corpuscular Hgb 33.1 pg (27.0-32.0); Mean Corpuscular Volume 97.1 fL (80-94); Mean Platelet Vol. 8.3 fl (6.2-12.0); Monocyte# 0.15 X10^3/uL; Monocyte% 3.6 % (0-10); Neutrophil # 3.65 X10^3/uL (2.7-7.7); Neutrophil % 86.7 % (47-70); POSITIVE COUNT NO; POSITIVE DIFFERENTIAL YES; POSITIVE MORPHOLOGY NO; Platelet Count 149 K/mm3 (150-450); RBC Distribution Width CV 16.1 % (11.6-14.6); RBC Distribution Width SD 54.7 fl (35.1-43.9); White Blood Count 4.2 K/mm3 (4.4-11.0)
[2018-03-09 11:28] LABS: Differential Indicated SCAN CRITERIA MET
[2018-03-09 11:39] LABS: ALB/GLOB Ratio 0.7 RATIO (0.9-2.4); AST(SGOT) 13 U/L (15-37); Alanine Aminotransfer ALT/SGPT 9 U/L (16-61); Albumin, Serum 2.9 g/dL (3.2-5.0); Alkaline Phosphatase 77 U/L (45-117); Anion Gap 6 (5-15); BUN 16 mg/dL (7-18); BUN/Creat Ratio 16.2 RATIO (10-20); Calcium,Total 8.9 mg/dL (8.5-10.1); Chloride 98 mmol/L (98-107); Creatinine, Serum 0.98 mg/dL (0.70-1.30); EST Glomerular Filtration Rate 80 mL/min (>60); Est Glom Filt Rate - Afr Amer 96 mL/min (>60); Estimated Creatinine Clearance 52.34 ml/min; Globulin 4.1 g/dL (2.2-4.2); Glucose 143 mg/dL (74-106); Lipase 101 U/L (73-393); Potassium 4.9 mmol/L (3.5-5.1); Sodium Level 132 mmol/L (136-145)
[2018-03-09 11:46] LABS: Lactic Acid 1.8 mmol/L (0.4-2.0)
[2018-03-09 12:36] LABS: Mucous, Urine 0 SEEN /hpf (<or=2+); Squamous Epithelial Cells - UA 0 SEEN /hpf (0-5)
[2018-03-09 12:47] LABS: Color, Urine Yellow (Yellow); Glucose, Dipstick Normal (Normal); Ketone-Dipstick Negative (Negative); Leukocyte Esterase-Dipstick 100 /ul (Negative); Nitrite-Dipstick Negative (Negative); Occult Blood-Urine 25 /ul (Negative); Protein-Dipstick 15 mg/dl (Negative); Urine Bilirubin Dipstick Negative (Negative); Urine Clarity Clear (Clear); Urine Urobilinogen Normal (Normal)
[2018-03-09 13:08] LABS: Bacteria 1+ /hpf (None Seen); Red Blood Cells-Urine 0-5 SEEN /hpf (0-5); White Blood Cells 5-10 SEEN /hpf (0-5)
[2018-03-09 13:18] VITALS: BP 144/78; PULSE 91; RESP 16; O2SAT 97
--- NOTE | 2018-03-09 14:16 | ED.VISSUMM ---
- ER Visit Summary Date of Service: 03/09/18 Chief Complaint: [Nominal pain and nausea] History of Present Illness: The patient is a 72 M [presents the emergency department complaint of abdominal pain and nausea that has had for over a week and a half. Patient states that he is currently undergoing chemotherapy and radiation for bladder cancer with metastasis to the bone. Patient's last chemotherapy was 10 days ago. Patient states that he had gone about 2 years without any treatment for his bladder cancer and just recently got reengaged. Patient states that his urologist in [place] initially had recommended taking out his bladder but there was concern about whether or not he be able to tolerate the surgery due to his heart. Patient does have a history of COPD. Patient was having radiation today and the patient oncologist was concerned the patient may be dehydrated and was sent to the emergency department. Patient states that he is not eating or drinking well. Patient states he has had severe nausea. Patient states that he has been taking OxyContin and oxycodone for breakthrough pain.] Physical Examination: [HEENT-PERRLA, EOMI. Cranial nerves II through XII grossly intact. TMs clear. Mucous membranes moist. No adenopathy. Cardiovascular-regular rate and rhythm without murmur or ectopy Lungs-clear to auscultation, chest wall stable without crepitus or subcu emphysema Abdomen-normoactive bowel sounds, soft. Patient has tenderness diffusely about the abdomen. There is no rebound, rigidity, or perineal signs. Patient does have a soft tissue swelling but slightly tender about the umbilicus. Extremities-intact ?4, normal range of motion, normal pulses, atraumatic] Test Results: [CBC with differential obtained on arrival showed a white blood cell count of 4.2, hemoglobin 11.6, hematocrit 34, platelets 149. Chemistries unremarkable. LFTs were unremarkable and lipase was 101. Urinalysis showed 5-10 WBCs and +1 bacteria and [address] CT scan of the abdomen and pelvis was read by radiology as severe left hydronephrosis with moderate left parenchymal volume loss and moderate right hydronephrosis severe left hydroureter circumferential wall thickening of bladder suggesting cystitis and bladder findings appear stable as compared to recent CT pelvis patient also noted to have a large prostate. There is a stable ovoid mass in the subcutaneous tissues of the umbilicus. Patient had gallstones but no evidence for cholecystitis. Emergency Department Course and Treatment: [Patient was medicated in the department with Reglan and Dilaudid and patient had good symptom control with that] Treatment Plan: [I had a long discussion with patient about admission versus outpatient follow-up. Patient would prefer to go home and follow-up with urologist and oncologist on outpatient basis. I believe the hydronephrosis on the left and right are chronic findings as compared with his prior CTs over the last 2 months. I did recommend follow-up with urology to discuss possible stent placement especially in the left ureter to attempt to solve the obstruction from the bladder mass. Patient would prefer to do this as an outpatient does not want to be admitted.] Disposition: [Discharged home in stable condition] Impression: [Abdominal pain Nausea History of bladder cancer with metastasis] This note was generated with [employer] dictation software. It may contain incorrect words, spelling, and punctuation that were not noted in review of the chart prior to signing ED Disposition - Plan for ED Patient: Chief Complaint: Abd Pain Referrals: Adia Martinez MD [Primary Care Provider] -
--- NOTE | 2018-03-09 14:21 | ED.DCSUM_ITS ---
- ER Visit Summary Date of Service: 03/09/18 Chief Complaint: [Nominal pain and nausea] History of Present Illness: The patient is a 72 M [presents the emergency department complaint of abdominal pain and nausea that has had for over a week and a half. Patient states that he is currently undergoing chemotherapy and radiation for bladder cancer with metastasis to the bone. Patient's last chemotherapy was 10 days ago. Patient states that he had gone about 2 years without any treatment for his bladder cancer and just recently got reengaged. Patient states that his urologist in [place] initially had recommended taking out his bladder but there was concern about whether or not he be able to tolerate t he surgery due to his heart. Patient does have a history of COPD. Patient was having radiation today and the patient oncologist was concerned the patient may be dehydrated and was sent to the emergency department. Patient states that he is not eating or drinking well. Patient states he has had severe nausea. Patient states that he has been taking OxyContin and oxycodone for breakthrough pain.] Physical Examination: [HEENT-PERRLA, EOMI. Cranial nerves II through XII grossly intact. TMs clear. Mucous membranes moist. No adenopathy. Cardiovascular-regular rate and rhythm without murmur or ectopy Lungs-clear to auscultation, chest wall stable without crepitus or subcu emphysema Abdomen-normoactive bowel sounds, soft. Patient has tenderness diffusely about the abdomen. There is no rebound, rigidity, or perineal signs. Patient does have a soft tissue swelling but slightly tender about the umbilicus. Extremities-intact ?4, normal range of motion, normal pulses, atraumatic] Test Results: [CBC with differential obtained on arrival showed a white blood cell count of 4.2, hemoglobin 11.6, hematocrit 34, platelets 149. Chemistries unremarkable. LFTs were unremarkable and lipase was 101. Urinalysis showed 5- 10 WBCs and +1 bacteria and [address].] CT scan of the abdomen and pelvis was read by radiology as severe left hydronephrosis with moderate left parenchymal volume loss and moderate right hydronephrosis severe left hydroureter circumferential wall thickening of bladder suggesting cystitis and bladder findings appear stable as compared to recent CT pelvis patient also noted to have a large prostate. There is a stable ovoid mass in the subcutaneous tissues of the umbilicus. Patient had gallstones but no evidence for cholecystitis. Emergency Department Course and Treatment: [Patient was medicated in the department with Reglan and Dilaudid and patient had good symptom control with that] Treatment Plan: [I had a long discussion with patient about admission versus outpatient follow-up. Patient would prefer to go home and follow-up with urologist and oncologist on outpatient basis. I believe the hydronephrosis on the left and right are chronic findings as compared with his prior CTs over the last 2 months. I did recommend follow-up with urology to discuss possible stent placement especially in the left ureter to attempt to solve the obstruction from the bladder mass. Patient would prefer to do this as an outpatient does not want to be admitted.] Disposition: [Discharged home in stable condition] Impression: [Abdominal pain Nausea History of bladder cancer with metastasis] This note was generated with [employer] dictation software. It may contain incorrect words, spelling, and punctuation that were not noted in review of the chart prior to signing ED Disposition - Plan for ED Patient: Chief Complaint: Abd Pain Referrals: Adia Martinez MD [Primary Care Provider] -
--- NOTE | 2018-03-09 14:21 | ED.DEP ---
ED Disposition - Plan for ED Patient: Chief Complaint: Abd Pain Instructions: ED Abdominal Pain Unkn Cause Referrals: Adia Martinez MD [Primary Care Provider] - Juan R Baca MD [STAFF PHYSICIAN] - 3-5 Days
[2018-03-09 14:36] VITALS: BP 143/71; PULSE 89; RESP 16; O2SAT 97
== END 2018-03-09 14:36 | disposition home or self-care (01) ==
LOC: ED 11:13
PROVIDERS: Emergency Provider Emergency Medicine
DX: R10.9 Unspecified abdominal pain (principal); R11.0 Nausea; C67.9 Malignant neoplasm of bladder, unspecified; C79.51 Secondary malignant neoplasm of bone; J44.9 Chronic obstructive pulmonary disease, unspecified; Z79.899 Other long term (current) drug therapy; Z72.0 Tobacco use
CPT/HCPCS: 74176; 80053; 81001; 83605; 83690; 85025; 87077; 87086; 87088; 96361; 96374; 96375; 99283